=== PATIENT | male | born 1960 | race African-American/Black ===

== ENCOUNTER 2016-12-15 12:10 | Outpatient (CLI) | payer MEDICARE | END 2016-12-15 12:11 | disposition home or self-care (01) | DX: E03.9 Hypothyroidism, unspecified (principal) ==

== ENCOUNTER 2017-07-21 14:55 | Outpatient (CLI) | payer MEDICARE | END 2017-07-21 14:56 | disposition home or self-care (01) | LOC: DI 14:55 | PROVIDERS: ATTEND Internal Medicine | DX: Z53.9 Procedure and treatment not carried out, unspecified reason (principal) ==

== ENCOUNTER 2017-10-07 07:45 | Outpatient (CLI) | payer SELFPAY | END 2017-10-07 07:46 | disposition home or self-care (01) | LOC: DI 07:45 | DX: Z53.9 Procedure and treatment not carried out, unspecified reason (principal) ==

== ENCOUNTER 2017-10-20 08:06 | Outpatient (CLI) | payer SELFPAY | END 2017-10-20 08:07 | disposition home or self-care (01) | LOC: DI 08:06 | DX: Z53.9 Procedure and treatment not carried out, unspecified reason (principal) ==

== ENCOUNTER 2017-10-21 08:58 | Outpatient (CLI) | payer SELFPAY | END 2017-10-21 08:59 | disposition home or self-care (01) | LOC: DI 08:58 | DX: Z53.9 Procedure and treatment not carried out, unspecified reason (principal) ==

== ENCOUNTER 2018-06-23 11:28 | Outpatient (CLI) | payer SELFPAY | END 2018-06-23 11:29 | disposition home or self-care (01) | LOC: DI 11:28 | PROVIDERS: ATTEND Internal Medicine | DX: Z53.9 Procedure and treatment not carried out, unspecified reason (principal) ==

== ENCOUNTER 2020-04-18 15:23 | Outpatient (CLI) | payer BC ==
--- NOTE | 2020-04-18 16:00 | XRAY Report ---
Reason: ABDOMINAL PAIN Procedure Date: 04/18/2020 Accession Number: [id number] / [id number] Procedure: XR - Abdomen 1 View X-Ray CPT Code: 76789 Final Report FULL RESULT: PROCEDURE: Abdomen 1 View X-Ray INDICATIONS: ABDOMINAL PAIN TECHNIQUE: 1 view(s) of the test abdomen were acquired. COMPARISON: test FINDINGS: Surgical changes and devices: None. Bowel: No pneumoperitoneum. The bowel gas pattern is normal. Soft tissues: No masses; visualized solid organ contours appear normal in size. No suspicious abdominal calcifications. Bones: No suspicious bony abnormalities. IMPRESSION: This is a test in prod Reviewed by: Nidia Lira on 04/18/2020 3:50 PM PDT Approved by: Nidia Lira on 04/18/2020 3:50 PM PDT Station ID: [id number]
--- NOTE | 2020-04-18 16:00 | CT Report ---
Reason: ABDOMINAL PAIN Procedure Date: 04/18/2020 Accession Number: [id number] / [id number] Procedure: CT - Abdomen/Pelvis W CPT Code: Final Report FULL RESULT: PROCEDURE: Abdomen/Pelvis W INDICATIONS: ABDOMINAL PAIN CONTRAST: IV CONTRAST: Optiray 320 ml: 100 PO CONTRAST: Optiray 320 ml50 TECHNIQUE: After the administration of oral and intravenous contrast, 5 mm thick sections acquired from the diaphragms to the symphysis. 5 mm thick coronal and sagittal reformats were acquired. For radiation dose reduction, the following was used: automated exposure control, adjustment of mA and/or kV according to patient size. COMPARISON: None. FINDINGS: Image quality: Excellent. ABDOMEN: Lung bases: Lung bases are clear. Heart size is normal. Solid organs: Liver and spleen are normal in size and enhancement. Gallbladder 25 Biliary system is non dilated. Pancreas enhances normally. No adrenal nodules. Kidneys demonstrate normal size and enhancement, without hydronephrosis. Peritoneum and bowel: Bowel loops demonstrate normal wall thickness and caliber. No free fluid or air. Nodes and vessels: No retroperitoneal or mesenteric adenopathy by size criteria. Aorta and inferior vena cava are normal in size. Miscellaneous: No ventral hernias. PELVIS: Genitourinary: Bladder wall thickness is normal. Miscellaneous: No inguinal hernias or adenopathy. Bones: No suspicious bony lesions. No vertebral body compression fractures. IMPRESSION: this is a test in prod Reviewed by: Nidia Lira on 04/18/2020 3:52 PM PDT Approved by: Nidia Lira on 04/18/2020 3:52 PM PDT Station ID: [id number]
== END 2020-04-18 15:24 | disposition home or self-care (01) ==
LOC: DI 15:23
PROVIDERS: ATTEND Physician Assistant Medical
DX: Z53.9 Procedure and treatment not carried out, unspecified reason (principal)
CPT/HCPCS: 74018; 74177